=== PATIENT | female | born 1955 | race Hispanic/Latino ===

== ENCOUNTER → 2019-04-21 | Day surgery (SDC) | payer MEDICARE ==
[2019-04-19 16:26] LABS: BASOPHILS # (AUTO) 0.1 (0.0-0.1); BASOPHILS % 0.5 % (0.0-1.0); EOSINOPHILS # (AUTO) 0.2 (0.0-0.4); EOSINOPHILS % 1.4 % (0.0-6.0); HEMATOCRIT 42.6 % (34.2-44.1); HEMOGLOBIN 13.8 g/dL (12.0-16.0); LYMPHOCYTES # (AUTO) 1.9 (1.0-3.2); MEAN CORPUSCULAR HEMOGLOBIN 31.9 pg (28-32); MEAN CORPUSCULAR HGB CONC 32.4 g/dL (31-35); MEAN CORPUSCULAR VOLUME 98.6 fL (81-99); MONOCYTES # (AUTO) 0.9 (0.2-0.8); MONOCYTES % 8.7 % (4.4-11.3); NEUTROPHILS # (AUTO) 7.3 (2.1-6.9); NEUTROPHILS % 70.7 % (38.7-80.0); PLATELET COUNT 298 x10e3/uL (140-360); RED BLOOD COUNT 4.32 x10e6/uL (3.6-5.1); RED CELL DISTRIBUTION WIDTH 12.9 % (11.7-14.4)
[~2019-04-21] MED LIST: AMLODIPINE BESY10 MG PO; CARVEDILOL6.25 MG PO; FENTANYL CITRATE/PF 100MCG/2 ML INJ ONE; LORAZEPAM PO; MIDAZOLAM HCL 2 MG/2 ML VIAL ONE; PROPOFOL IV EMULSION 10 MG/ML 50 ML VIAL ONE; RMFLEX PO
--- OUTSIDE RECORDS SUMMARY | 2019-04-21 05:13 | XMS REPORT ---
Author Author [facility] Address Unknown Phone Unavailable Care Team Providers Care [place] Name Role Phone Unavailable Unavailable Payers Payer Name Policy Type Policy Number Effective Date Expiration Date Problems This patient has no known problems. Allergies, Adverse Reactions, Alerts Allergy Name Allergy Type Status Severity Reaction(s) Onset Date Inactive Date Treating Clinician Comments CORTISOL DA Active U 2018-05-30 00:00:00 Medications This patient has no known medications. Results Test Description Test Time Test Comments Text Results Atomic Results Result Comments SCR MAMM BILATERAL GARY CAD DIGITAL 2018-06-09 11:19:02 - SCR MAMM BILATERAL GARY CAD DIGITALBILATERAL DIGITAL SCREENING MAMMOGRAM 3D/2D WITH CAD: 06/08/2018CLINICAL: Asymptomatic. Digital breast tomosynthesis was performed in addition to routine CC and MLO views. Current mammographic images were evaluated by either a PicksPal M-Vu or a Snapvine ImageChecker CAD (computer aided detection system). Comparison is made to exams dated 06/23/2016 mammogram, 2015 mammogram, and 09/05/2014 mammogram - [facility]. There are scattered fibroglandular tissues in both breasts. There are benign calcifications in both breasts. There also are benign masses in both breasts. Additionally, there are benign vascular calcifications in the right breast. No suspicious mass, architectural distortion, malignant type calcification, or lymph node abnormality detected. Breast architecture is stable compared to prior exams.IMPRESSION: BENIGNThere is no mammographic evidence of malignancy. Resume annual screening mammography in one year. Ila garcia/penrad:06/09/2018 11:19:02 Entry: cp - 06/10/2018 09:09:18Attending Technologist: Yolis Pepper MM, [facility] MammographyImaging Technologist: Summer Pappas MM, [facility] Mammographyletter sent: BIRADS 1-2 Normal Mammogram BI-RADS: 2 Benign - XR RIBS UNI W/CXR 3+V RT 2018-05-30 22:18:00 Name: ANATOLIY PARNELL [facility] : 1955 Age/S:62 /F [address] [facility] Unit#:[id number] [place]: [place] [address] Phys: Mushtaq Whitehead Dis Date: PHONE #: [phone] Status: REG ER FAX #: [phone] Exam Date: 05/30/2018 Reason: RIGHT LOWER RIB PAIN S/P FELL OUT OF BED EXAMS: CPT CODE: [id number] XR RIBS UNI W/CXR 3+[place] [id number] REASON FOR EXAM: RIGHT LOWER RIB PAIN S/P FELL OUT OF BED EXAM ORDER DATE: 05/30/2018 8:44 PM Ordering Haider: Mushtaq Whitehead PROCEDURE: - XR RIBS UNI W/CXR 3+V RT FINDINGS: 5 views of the frontal view of the chest and right ribs were obtained. The osseous structures are unremarkable in size and shape. No evidence of pneumothorax or hemothorax. No evidence of displaced rib fracture. IMPRESSION: Unremarkable right ribs at 2218 Reported and signed by: Miguelito Pascal M.D. CC: Jean Pierre Nugent MD; Mushtaq Whitehead Technologist: SARITA TELLEZ RT(R),CT Trnscrpt Data: 05/30/2018 (2217) Elan Orig Print D/T: S: 05/30/2018 (1498) PAGE 1 Signed Report CREATINE KINASE (CK), TOTAL AND MB 2017-02-17 23:21:00 CREATINE KINASE TOTAL (BEAKER) (test hhgh=226) 112 U/L 29-200 CREATINE KINASE-MB (BEAKER) (test zlyz=364) 0.7 ng/mL 0.0-6.6 CREATINE KINASE-MB INDEX (BEAKER) (test cjcm=500) 0.6 % CK-MB Reference Range:<6.7 Normal6.7-10.0 Borderline>10.0 Abnormal TROPONIN [id number] 23:21:00* Test Item Value Reference Range Comments TROPONIN I (BEAKER) (test jnep=624) < ng/mL 0.00-0.03 Troponin I (TnI) levels must be interpreted in the context of the presenting sym ptoms and the clinical findings. Elevated TnI levels indicate myocardial damage, but are not specific for ischemic heart disease. Elevated TnI levels are seen in patients with other cardiac conditions (including myocarditis and congestive h eart failure), and slight TnI elevations occur in patients with other conditions , including sepsis, renal failure, acidosis, acute neurological disease, and per sistent tachyarrhythmia.RAD, CHEST, 1 VIEW, NON [id number] 23:18:00Reason for exam:->chest painFINAL REPORT History: Chest pain. Comparison: None. Findings: A single view of the chest is submitted. The cardiomediastinal contours are unremarkable. There is no focal consolidation, pneumothorax, large pleural effusion or evidence of overt pulmonary edema. There is no acute bony abnormality. Impression: No acute abnormality. Signed: Maxx Love MDReport Verified Date/Time: 02/17/2017 23:18:27 Reading Location: [address] Reading Room [id number] 23:15:00* Test Item Value Reference Range Comments MAGNESIUM (BEAKER) (test ssgn=958) 2.1 mg/dL 1.6-2.6 BASIC METABOLIC [id number] 23:15:00* Test Item Value Reference Range Comments SODIUM (BEAKER) (test onzs=363) 139 meq/L 136-145 POTASSIUM (BEAKER) (test juui=820) 4.3 meq/L 3.5-5.1 CHLORIDE (BEAKER) (test uhuv=201) 105 meq/L 98-107 CO2 (BEAKER) (test xepq=178) 26 meq/L 22-29 BLOOD UREA NITROGEN (BEAKER) (test xvyy=937) 13 mg/dL 7-21 CREATININE (BEAKER) (test bply=810) 0.72 mg/dL 0.57-1.25 GLUCOSE RANDOM (BEAKER) (test ccnl=877) 130 mg/dL 70-105 CALCIUM (BEAKER) (test xrvr=069) 9.1 mg/dL 8.4-10.2 EGFR (BEAKER) (test yxws=8633) 82 mL/min/1.73 sq m ESTIMATED GFR IS NOT ACCURATE CREATININE CLEARANCE IN PREDICTING GLOMERULAR FILTRATION RATE. ESTIMATED GFR IS NOT APPLICABLE FOR DIALYSIS PATIENTS. PT/[id number] 23:13:00* Test Item Value Reference Range Comments PROTIME (BEAKER) (test jedw=064) 14.0 seconds 11.7-14.7 INR (BEAKER) (test gmwz=241) 1.1 <=5.9 PARTIAL THROMBOPLASTIN TIME (BEAKER) (test iffp=470) 24.5 seconds 22.5-36.0 RECOMMENDED COUMADIN/WARFARIN INR THERAPY RANGESSTANDARD DOSE: 2.0 - 3.0 Inclu meagan: PROPHYLAXIS for venous thrombosis, systemic embolization; TREATMENT for patti ous thrombosis and/or pulmonary embolus.HIGH RISK: Target INR is 2.5-3.5 for pat ients with mechanical heart valves.CBC W/PLT COUNT & AUTO [id number] 22:59:00* Test Item Value Reference Range Comments WHITE BLOOD CELL COUNT (BEAKER) (test xygc=104) 9.8 K/ L 3.5-10.5 RED BLOOD CELL COUNT (BEAKER) (test skhu=109) 4.16 M/ L 3.93-5.22 HEMOGLOBIN (BEAKER) (test aazv=931) 13.2 GM/DL 11.2-15.7 HEMATOCRIT (BEAKER) (test plyk=292) 40.6 % 34.1-44.9 MEAN CORPUSCULAR VOLUME (BEAKER) (test pvpy=843) 97.6 fL 79.4-94.8 MEAN CORPUSCULAR HEMOGLOBIN (BEAKER) (test nzts=593) 31.7 pg 25.6-32.2 MEAN CORPUSCULAR HEMOGLOBIN CONC (BEAKER) (test bxwi=050) 32.5 GM/DL 32.2-35.5 RED CELL DISTRIBUTION WIDTH (BEAKER) (test boxc=531) 13.2 % 11.7-14.4 PLATELET COUNT (BEAKER) (test yjul=473) 238 K/CU MM 150-450 MEAN PLATELET VOLUME (BEAKER) (test mdyz=937) 9.3 fL 9.4-12.3 NUCLEATED RED BLOOD CELLS (BEAKER) (test fovy=666) 0 /100 WBC 0-0 NEUTROPHILS RELATIVE PERCENT (BEAKER) (test qvwg=989) 73 % LYMPHOCYTES RELATIVE PERCENT (BEAKER) (test nnlg=342) 16 % MONOCYTES RELATIVE PERCENT (BEAKER) (test pmwu=351) 9 % EOSINOPHILS RELATIVE PERCENT (BEAKER) (test eevh=052) 2 % BASOPHILS RELATIVE PERCENT (BEAKER) (test jgal=975) 0 % NEUTROPHILS ABSOLUTE COUNT (BEAKER) (test smtl=875) 7.12 K/ L 1.56-6.13 LYMPHOCYTES ABSOLUTE COUNT (BEAKER) (test rbxd=295) 1.54 K/ L 1.18-3.74 MONOCYTES ABSOLUTE COUNT (BEAKER) (test zxgl=875) 0.85 K/ L 0.24-0.36 EOSINOPHILS ABSOLUTE COUNT (BEAKER) (test uzvw=450) 0.22 K/ L 0.04-0.36 BASOPHILS ABSOLUTE COUNT (BEAKER) (test czyt=158) 0.04 K/ L 0.01-0.08 IMMATURE GRANULOCYTES-RELATIVE PERCENT (BEAKER) (test tflf=3952) 0 % 0-1
--- OUTSIDE RECORDS SUMMARY | 2019-04-21 05:13 | XMS REPORT | Summary of Care ---
Author Author Shanti Vargas Organization Unknown Address [facility] Phone Unavailable Care Team Providers Care Staff Psychiatrist Name Role Phone Shanti Vargas Unavailable Unavailable SHYAM QUEZADA M.D. Unavailable Unavailable GREGORIO MOSS, EDSON Penny Unavailable Unavailable Unavailable Unavailable Functional Status Name Dates Details Functional status health issues are not documented Status: Name Dates Details Cognitive status health issues are not documented Status: Problems Name Dates Details Limb pain (729.5, M79.609) Status: Active Primary osteoarthritis of both knees (715.16, M17.0) Status: Active H/O total hip arthroplasty, right (V43.64, Z96.641) Status: Active Osteoarthritis of right knee (715.96, M17.11) Status: Active H/O total knee replacement, right (V43.65, Z96.651) Status: Active Medications Name Dates Details Diclofenac Sodium 1 % Transdermal Gel APPLY TO LOWER EXTREMITIES, 4 GM OF GEL TO AFFECTED AREA 4 TIMES DAILY. DO NOT APPLY MORE THAN 16 GM DAILY TO ANY ONE AFFECTED JOINT. Quantity: 9 SHYAM QUEZADA M.D. * Start : 21-Jan-2017 Active 100 GM Tube Allergies and Adverse Reactions Name Dates Details Allergy history not documented Status: Procedures Procedure Dates Details Procedures not documented Immunization Name Dates Details Immunizations not documented Social History Name Dates Details Unknown if ever smoked Vital Signs Date Test Result Details No Known Vitals to report Results Date Description Value Details Results not documented Plan of Care Name Dates Details Planned Observations Planned Goals not documented Instructions Name Dates Details Instructions not documented Encounters Appointment; YOLANDE BARLOW M.D. Encounter Diagnosis: Problem not documented On: 08-Dec-2016 10:30 Appointment; SHYAM QUEZADA M.D. Encounter Diagnosis: Problem not documented On: 16-Dec-2016 13:15 Appointment; SHYAM QUEZADA M.D. Encounter Diagnosis: Problem not documented On: 30-Dec-2016 11:15 Appointment; SHYAM QUEZADA M.D. Encounter Diagnosis: Problem not documented On: 06-Jan-2017 11:30 Appointment; SHYAM QUEZADA M.D. Encounter Diagnosis: Problem not documented On: 06-Jan-2017 11:30 Appointment; SHYAM QUEZADA M.D. Encounter Diagnosis: Problem not documented On: 13-Jan-2017 11:00 Appointment; SHYAM QUEZADA M.D. Encounter Diagnosis: Problem not documented On: 21-Apr-2017 14:15 Appointment; SHYAM QUEZADA M.D. Encounter Diagnosis: Problem not documented On: 12-May-2017 11:15 Appointment; SHYAM QUEZADA M.D. Encounter Diagnosis: Problem not documented On: 17-May-2017 9:00 Appointment; SHYAM QUEZADA M.D. Encounter Diagnosis: Problem not documented On: 28-May-2017 14:00 Appointment; SHYAM QUEZADA M.D. Encounter Diagnosis: Problem not documented On: 02-Jun-2017 13:45 Appointment; SHYAM QUEZADA M.D. Encounter Diagnosis: Problem not documented On: 23-Jun-2017 13:45 Appointment; SHYAM QUEZADA M.D. Encounter Diagnosis: Problem not documented On: 04-Aug-2017 13:30
[2019-04-21 08:10] VITALS: BP 105/74
== END | disposition home or self-care (01) ==
LOC: OR 05:10
PROVIDERS: ATTEND Internal Medicine Gastroenterology
DX: K29.50 Unspecified chronic gastritis without bleeding (principal); K22.2 Esophageal obstruction; K21.0 Gastro-esophageal reflux disease with esophagitis; K44.9 Diaphragmatic hernia without obstruction or gangrene; K21.9 Gastro-esophageal reflux disease without esophagitis; K58.9 Irritable bowel syndrome, unspecified; Z71.3 Dietary counseling and surveillance; D64.9 Anemia, unspecified; E66.01 Morbid (severe) obesity due to excess calories; I12.9 Hypertensive chronic kidney disease with stage 1 through stage 4 chronic kidney disease, or unspecified chronic kidney disease; N18.9 Chronic kidney disease, unspecified; F41.9 Anxiety disorder, unspecified; R05 Cough; Z88.8 Allergy status to other drugs, medicaments and biological substances; Z01.810 Encounter for preprocedural cardiovascular examination; Z01.812 Encounter for preprocedural laboratory examination; Z68.42 Body mass index [BMI] 45.0-49.9, adult; Z90.49 Acquired absence of other specified parts of digestive tract; Z87.01 Personal history of pneumonia (recurrent)
CPT/HCPCS: 36415; 43239; 85025; 88305; 88312; 93005; J2250; J2704; J3010

== ENCOUNTER 2022-08-10 13:37 | Outpatient (RCR) | payer OTHER ==
[~2022-08-10 13:37] MED LIST changes: -FENTANYL CITRATE/PF 100MCG/2 ML INJ ONE; -MIDAZOLAM HCL 2 MG/2 ML VIAL ONE; -PROPOFOL IV EMULSION 10 MG/ML 50 ML VIAL ONE
== END 2022-08-21 ==
LOC: PT 13:37
PROVIDERS: ATTEND Physician Assistant
DX: M43.16 Spondylolisthesis, lumbar region (principal)

== ENCOUNTER 2024-07-04 15:53 | Emergency (ER) | payer MEDICARE ==
[~2024-07-04] VITALS: Ht 157.5 cm; Wt 99.3 kg
[2024-07-04] MEDS: IBUPROFEN 600 MG TAB PO STA (17:14)
[2024-07-04 18:47] VITALS: PULSE 77; RESP 16; TEMP 98.1
[2024-07-04] MEDS ORDERED: ULTRAM 50MG50 MG PO (18:58)
[2024-07-04 19:55] VITALS: BP 162/88; PULSE 75; RESP 16; TEMP 98.1; O2SAT 96
== END 2024-07-04 19:28 | disposition home or self-care (01) ==
LOC: ER 18:21
DX: M25.552 Pain in left hip (principal); M25.562 Pain in left knee; W10.8XXA Fall (on) (from) other stairs and steps, initial encounter; Y93.01 Activity, walking, marching and hiking; Y92.89 Other specified places as the place of occurrence of the external cause; Z96.653 Presence of artificial knee joint, bilateral
CPT/HCPCS: 99284